=== PATIENT | female | born 1960 | race Caucasian/White ===

== ENCOUNTER 2017-06-21 06:28 | Day surgery (SDC) | payer OTHER ==
[~2017-06-21 06:28] MED LIST: Dextrose 5%-0.45% NaCl 1,000 ML IV SCH; Midazolam 1 MG/ML 2 ML SDV ONE; Sodium Chloride 0.9% 10 ML Syringe FLUSH PRN; fentaNYL 100 MCG/2 ML SDV ONE
[2017-06-21] MEDS ORDERED: Midazolam 1 MG/ML 2 ML SDV IV ONE ×3 (06:29→07:44)
[2017-06-21] MEDS ORDERED: fentaNYL 100 MCG/2 ML SDV IV ONE ×3 (06:29→07:42)
--- NOTE | 2017-06-21 10:42 | OR ---
DATE: 06/21/2017 PROCEDURES: Esophagogastroduodenoscopy, narrow-band imaging, and multiple pinch biopsies. INSTRUMENT USED: GIF-H180 Olympus video panendoscope. PREMEDICATIONS: No oral topical anesthesia used. Fentanyl 100 mcg intravenous, Versed 2 mg intravenous. Nasal O2 cannula. The procedure was done under pulse oximetry, BP recording, and pvc monitor. INDICATION: The patient with coughing spells as well as throat discomfort, persistent in nature, not responsive to medical measures, also has explained iron-deficiency anemia. Esophagogastroduodenoscopy is performed for detection of any active erosive lesions. Velásquez esophagus and/or malignancy also under consideration. H. pylori status to be determined, endoscopic hemostasis therapy if needed. DESCRIPTION OF PROCEDURE: The scope was passed with ease. Adequate visualization of the esophagus was made from proximal to distal areas. Garwin columnar epithelium was noted at around 26 cm distal to the oral verge with some narrowing area, but the tip of the scope was passed with ease to visualize the distal areas. Grade D erosive changes were noted by [place] criteria. No esophageal polyp or tumor mass identified. NBI views were obtained of the pink columnar epithelium. No esophageal polyp or tumor mass identified. No uphill or downhill esophageal varices noted. Four-quadrant biopsies were taken at 2 cm distance apart from the pink columnar epithelium and sent for any microscopic evidence of intestinal metaplasia. No proximal gastric varices noted. Gastric fundus examination by retroflexion showed no malignant lesions. Diminutive gastric fundus polyps were noted. No gastric ulcer, malignant mass, or vascular ectasia identified. Multiple pinch biopsies were taken from the gastric antrum and proximal body and sent for PyloriTek test for H. pylori and histopathology. Duodenal bulb showed no ulcer. Visualized second part of the duodenum was unremarkable. No bleeding was noted from any of the visualized areas at the completion of examination. Photographs were taken of the duodenal bulb, gastric antrum, fundus, and distal esophagus. IMPRESSION: 1. Diminutive gastric fundus polyps. 2. Velásquez esophagus. 3. Grade D gastroesophageal reflux disease. The patient tolerated the procedure well. [facility] /[id number]
== END 2017-06-21 10:08 | disposition home or self-care (01) ==
LOC: DL.ENDO 06:28
PROVIDERS: ATTEND Internal Medicine Gastroenterology
DX: K22.70 Barrett's esophagus without dysplasia (principal); K21.9 Gastro-esophageal reflux disease without esophagitis; K20.9 Esophagitis, unspecified; E66.9 Obesity, unspecified; E11.9 Type 2 diabetes mellitus without complications; F41.1 Generalized anxiety disorder; F32.9 Major depressive disorder, single episode, unspecified; Z88.8 Allergy status to other drugs, medicaments and biological substances
CPT/HCPCS: 43239; 87077; J2250; J3010; J7042